=== PATIENT | female | born 1930 | race Caucasian/White ===

== ENCOUNTER 2020-03-23 13:36 | Inpatient (IN) | payer MEDICARE, OTHER ==
[~2020-03-23] VITALS: Ht 152.4 cm; Wt 63.5 kg
[2020-03-23] MEDS ORDERED: IV NS 1000 ML 1,000 ML IV ONE (14:00)
[2020-03-23] MEDS ORDERED: ACETAMINOPHEN 650 MG SUPP.RECT RC ONE (14:30)
[2020-03-23] MEDS ORDERED: ACETAMINOPHEN 325 MG SUPP ONE (14:32)
[2020-03-23 14:41] LABS: *BILIRUBIN,URIN NEGATIVE (NEGATIVE); *CLARITY,URINE CLOUDY (CLEAR); *COLOR,URINE DARK YELLOW (YELLOW); *KETONES,URINE NEGATIVE (NEGATIVE); *UROBILINOGEN,URINE 0.2 E.U./dl (NORMAL); LEUKOCYTE ESTERASE ,URINE NEGATIVE (NEGATIVE); NITRITE, URINE NEGATIVE (NEGATIVE); PH,URINE 5.5 (5.0-8.0); UGLUCOSE NEGATIVE (NEGATIVE)
[2020-03-23] MEDS ORDERED: VANCOMYCIN IV 200 ML ONE (14:43)
[2020-03-23] MEDS ORDERED: AZITHROMYCIN 500MG/ D5W 250ML IVPB **ER PYXIS ONLY IV ONE (14:43)
[2020-03-23 14:44] LABS: BASOPHILS % (AUTO) 0.5 % (0.0-2.0); HEMOGLOBIN 15.3 g/dL (10.9-14.3); LYMPHOCYTES # (AUTO) 0.8 K/uL (20.0-40.0); LYMPHOCYTES % (AUTO) 13.1 % (20.5-51.5); MEAN CORPUSCULAR HEMOGLOBIN 28.9 uug (24.7-32.8); MEAN CORPUSCULAR HGB CONC 33 g/dL (32.3-35.6); MEAN CORPUSCULAR VOLUME 89.1 fL (75.5-95.3); MONOCYTES # (AUTO) 0.5 K/uL (2.0-10.0); MONOCYTES % (AUTO) 7.3 % (0.0-11.0); NEUTROPHILS % (AUTO) 79.1 % (38.5-71.5); PLATELET COUNT (AUTO) 150 K/uL (179-408); RED BLOOD CELL COUNT(AUTO) 5.28 MIL/uL (3.63-4.92); WHITE BLOOD COUNT (AUTO) 6.4 K/uL (3.8-11.8)
[2020-03-23] MEDS ORDERED: VANCOMYCIN IV 1,000 MG in IV DEXTROSE 5% 250 ML IV ONE (14:45)
[2020-03-23] MEDS ORDERED: IV NORMAL SALINE 1000 ML BAG IV ONE (14:45)
[2020-03-23] MEDS ORDERED: PIPERACILLIN SODIUM/TAZOBACTAM 3.375 G in IV DEXTROSE 5% 50 ML IV ONE (14:45)
[2020-03-23] MEDS ORDERED: AZITHROMYCIN IV 500 MG in IV DEXTROSE 5% 250 ML IV ONE (14:45)
[2020-03-23 14:49] LABS: *BLOOD, URINE TRACE (NEGATIVE)
[2020-03-23 14:50] LABS: BACTERIA,URINE MANY /HPF (NONE SEEN); MAGNESIUM 2.2 mg/dL (1.8-2.4); MUCUS,URINE MANY /LPF (0-FEW); PHOSPHOROUS 3.9 mg/dL (2.5-4.9); SQUAMOUS EPITHELIAL CELL,UR FEW /HPF (NONE SEEN)
[2020-03-23 14:52] LABS: BILIRUBIN,DIRECT 0.3 mg/dL (0.0-0.2); BILIRUBIN,TOTAL 0.6 mg/dL (0.2-1.0); POTASSIUM 3.4 mmol/L (3.5-5.1); TOTAL PROTEIN, SERUM 7.7 g/dL (6.4-8.2)
--- NOTE | 2020-03-23 15:07 | NUR ---
PATIENT IN ROOM 1. SHE IS AWAKE AND ALERT IN NO DISTRESS. SHE HAS A FEVER. MEDICATION GIVEN ORDERED. FLU AND CRUZ VIRUS SWAB SENT TO LAB, URINE SENT TO LAB.
[2020-03-23 15:14] LABS: THYROID STIMULATING HORMONE 2.048 mIU/mL (0.358-3.740)
--- NOTE | 2020-03-23 15:37 | NUR ---
REPORT GIVEN TO ANTHONY FROM TELE FLOOR.
--- NOTE | 2020-03-23 15:50 | NUR ---
Received pt. from ER. Pt. is oriented to self, pt on room air saturating at 87%. Titrated oxygen up. Pt. is now on 5 L NC. O2 Saturation at 97%. Pt. has IV in L wrist 20 gauge intact patent. Vitals stable after NC. pt appears in no distress. pt. appears resting comfortably. pt. on droplet/ contact precautions for rule out covid. safety measures in place. bed in lowest position will continue to monitor pt.
[2020-03-23] MEDS ORDERED: ASPIRIN 300 MG RECTAL SUPP RC ONE (16:00)
[2020-03-23 16:56] VITALS: BP 116/50
[2020-03-23] MEDS ORDERED: ONDANSETRON 4 MG/2 ML VIAL IV PRN (17:00)
--- NOTE | 2020-03-23 17:07 | NUR ---
Clinical Pharmacy Note: Vancomycin Dosing per Pharmacy Subjective: Vancomycin IV to start on this 89 YO female patient for suspected infection from alf (r/o covid) Objective: BUN 33/Scr 1.0 WBC 6.4 Temperature 102.7 ht 152 cm wt 58 kg Assessment/Plan: Patient received vanco 1gm IVPB x1 today in ED. Will start vancomycin 1000mg IVPB Q36hr for a predicted vancomycin steady state trough level of 15 mcg/ml. 2nd dose on 03/25 at 0400. Will draw a vancomycin trough level prior to the 4th dose of vancomycin (not ordered yet). Will monitor renal function and adjust vancomycin dose, if needed, should renal function change significantly. Will follow daily.
[2020-03-23] MEDS: POTASSIUM CHLORIDE 20 MEQ in IV D5W 1000ML 1,000 ML IV PRN (17:52)
--- NOTE | 2020-03-23 18:47 | NUR ---
Pt. is disoriented, removing nasal canula. On room air O2 is not greater than 87%. Bilateral soft mitten restraints ordered. O2 is within range on 5 L. Pt. does not have a temperature. pt. resting comortably. all needs met. safety measures in place. will endorse to pm nurse
[2020-03-23 19:00] VITALS: BP 105/56
[2020-03-23] MEDS: PIPERACILLIN SODIUM/TAZOBACTAM 3.375 G in IV DEXTROSE 5% 50 ML IV SCH (21:15)
[2020-03-24] VITALS (25 sets, daily range): BP systolic 79–171; BP diastolic 39–96
[2020-03-24] MEDS: ACETAMINOPHEN 650 MG SUPP.RECT RC PRN ×3 (01:13→21:10)
--- NOTE | 2020-03-24 01:20 | NUR ---
patient is spiking a fewer of 102.4, shivering, rectal tylenol given. Humidifier was added to the O2 set-up.
[2020-03-24] MEDS: PIPERACILLIN SODIUM/TAZOBACTAM 3.375 G in IV DEXTROSE 5% 50 ML IV SCH ×3 (06:06→21:30)
[2020-03-24] MEDS: POTASSIUM CHLORIDE 20 MEQ in IV D5W 1000ML 1,000 ML IV PRN ×2 (06:08→20:41)
--- NOTE | 2020-03-24 07:25 | NUR ---
CONTACTED DR. HOPKINS FOR BP 82/45 ORDER RECEIVED FOR NS BOLUS, ALSO NOTIFIED HIM OF ELEVATED TROPONIN AND REQUEST FOR MIDLLINE. APPROVED.
[2020-03-24 07:48] LABS: BASOPHILS % (AUTO) 0.3 % (0.0-2.0); HEMOGLOBIN 13.3 g/dL (10.9-14.3); LYMPHOCYTES # (AUTO) 0.5 K/uL (20.0-40.0); LYMPHOCYTES % (AUTO) 9.1 % (20.5-51.5); MEAN CORPUSCULAR HEMOGLOBIN 29.1 uug (24.7-32.8); MEAN CORPUSCULAR HGB CONC 33 g/dL (32.3-35.6); MEAN CORPUSCULAR VOLUME 89.3 fL (75.5-95.3); MONOCYTES # (AUTO) 0.2 K/uL (2.0-10.0); MONOCYTES % (AUTO) 3.4 % (0.0-11.0); NEUTROPHILS # (AUTO) 5.2 K/uL (1.8-8.9); NEUTROPHILS % (AUTO) 87.2 % (38.5-71.5); PLATELET COUNT (AUTO) 112 K/uL (179-408); RED BLOOD CELL COUNT(AUTO) 4.59 MIL/uL (3.63-4.92); WHITE BLOOD COUNT (AUTO) 5.9 K/uL (3.8-11.8)
[2020-03-24 08:02] LABS: BILIRUBIN,TOTAL 0.8 mg/dL (0.2-1.0); MAGNESIUM 2.2 mg/dL (1.8-2.4); PHOSPHOROUS 1.9 mg/dL (2.5-4.9); POTASSIUM 3.6 mmol/L (3.5-5.1); TOTAL PROTEIN, SERUM 6.1 g/dL (6.4-8.2)
[2020-03-24] MEDS: PANTOPRAZOLE SODIUM 40 MG VIAL IV SCH (08:09)
[2020-03-24] MEDS ORDERED: ENOXAPARIN SODIUM 40 MG/0.4 ML DISP.SYRIN SQ SCH (08:15)
[2020-03-24 08:27] LABS: THYROID STIMULATING HORMONE 1.604 mIU/mL (0.358-3.740)
[2020-03-24] MEDS ORDERED: IV NORMAL SALINE 500 ML IV ONE (08:45)
[2020-03-24 09:01] LABS: AMYLASE 86 U/L (25-115); LIPASE 593 U/L (73-393)
[2020-03-24] MEDS ORDERED: BUMETANIDE 1 MG/4 ML VIAL IV ONE (11:00)
--- NOTE | 2020-03-24 11:13 | NUR ---
Clinical Pharmacy Note: Vancomycin Dosing per Pharmacy Subjective: Vancomycin IV to continue on this 89 YO female patient for suspected infection from [facility](no MD note yet, ER note:severe sepsis, PUI Covid) Objective: BUN 27/Scr 1.0 WBC 5.9 Temperature 102.4 ht 152 cm wt 58 kg 03/24:pending covid result Assessment/Plan: Will continue vancomycin 1000mg IVPB Q36hr for a predicted vancomycin steady state trough level of 15 mcg/ml. 2nd dose on 03/25 at 0400. Will draw a vancomycin trough level prior to the 4th dose of vancomycin (not ordered yet). Will monitor renal function and adjust vancomycin dose, if needed, should renal function change significantly. Will follow daily.
[2020-03-24] MEDS: ENOXAPARIN SODIUM 30 MG/0.3 ML DISP.SYRIN SUBCUT SCH (11:35)
[2020-03-24] MEDS ORDERED: NOREPINEPHRINE BITARTRATE 32 MG in IV NORMAL SALINE 218 ML IV PRN (12:45)
[2020-03-24] MEDS ORDERED: SODIUM PHOSPHATE MM 15 MMOL in IV NORMAL SALINE 250 ML IV ONE (13:00)
[2020-03-24] MEDS ORDERED: NOREPINEPHRINE BITARTRATE 8 MG in IV NORMAL SALINE 242 ML IV PRN (13:15)
[2020-03-24] MEDS: LORAZEPAM 2 MG/1 ML VIAL IV PRN (15:27)
[2020-03-24] MEDS ORDERED: LORAZEPAM 2 MG/1 ML VIAL IV ONE (15:59)
[2020-03-24] MEDS ORDERED: ADENOSINE 6 MG/2 ML SYR IV ONE (16:00)
[2020-03-24 16:35] LABS: ABG BASE EXCESS -4.9 mmol/L; ABG HCO3 17.4 mmol/L; ABG PCO2 26.1 mmHg (35.0-45.0); ABG PH 7.441 (7.350-7.450); ABG PO2 105.5 mmHg (75.0-100.0); ABG SITE RIGHT RADIAL; ABG TOTAL HEMOGLOBIN 14.9 G/dL (12.0-16.0); MetHb 0.3 % (0.0-1.5); O2Hb 97.1 % (94.0-97.0)
[2020-03-24] MEDS ORDERED: LORAZEPAM 2 MG/1 ML VIAL IV PRN (18:00)
[2020-03-24] MEDS ORDERED: DILTIAZEM HCL IV 125 MG in IV NORMAL SALINE 100 ML IV PRN (18:00)
[2020-03-24] MEDS: PHENYLEPHRINE IV 50 MG in IV NORMAL SALINE 245 ML IV PRN (18:47)
[2020-03-24] MEDS: DILTIAZEM HCL IV 125 MG in IV NORMAL SALINE 100 ML IV PRN (18:48)
--- NOTE | 2020-03-24 19:30 | NUR ---
REPORT RECEIVED DR ORDAZ CANCELLED ORDER FOR CT OF ABDOMEN AND PELVIS
--- NOTE | 2020-03-24 19:34 | NUR ---
Patient was transfered to CCU this afternoon, patient began shaking in what appeared to be a seizure, and heart rate was elevated along with BP. Contacted Dr. andre, performed EKG, and reported results, adenosine ordered which did not have a significant effect. Cardio requested and saw patient, Patient was also desaturating and mask and Nasal cannula were needed to keep patient's 02 saturation up, currently at 98%, abg also ordered. Currrently patient in bed resting comfortably, HR at 113, BP 133/73 on neosynephrine, and cardizem. IV fluids infulsing. roger draining.
--- NOTE | 2020-03-24 20:00 | NUR ---
RECEIVED AROUSABLE TO TOUCH , WITH NO SPONTANEOUS EYE OPENING , , ON SIMPLE MASK AT 10 L , CARDIZEM AT 3 MG , NEOSYNEPHRINE AT 0.5 MCG , DW + 20 MEQ KCL AT 90 ML , MID LINE LEFT ARM INTACT , 20 GA RAC INTACT , TEMPERATURE RECTALLY 105. 2, NO SEIZURE NOTED ,
--- NOTE | 2020-03-24 20:30 | NUR ---
COOL MEASURES BATH APPLIED , COOLING BLANKET PLACED ,
--- NOTE | 2020-03-24 21:00 | NUR ---
madalyn carter and maddy given an update on patient's condition
--- NOTE | 2020-03-24 23:26 | NUR ---
PATIENT IS DW + 20 MEQ KCL AT 90 ML . INTAKE AND OUPUT MONITORED ALONG WITH LABS LEVELS Addendum: 03/24/20 at 2325 by PRECIOUS CHILDRESS RN Amended: Sara kumar. Addendum: 03/24/20 at 2326 by PRECIOUS CHILDRESS RN Amended: Sara kumar. Addendum: 03/24/20 at 2327 by PRECIOUS CHILDRESS RN Amended: Links added. Addendum: 03/24/20 at 2332 by PRECIOUS CHILDRESS RN Amended: Links added.
--- NOTE | 2020-03-24 23:27 | NUR ---
PATIENT IS ON NEOSYNNEPRINE AT 5 MCG BEING TITRATED WHEN APPLICABLE Addendum: 03/24/20 at 2327 by PRECIOUS CHILDRESS RN Amended: Sara added. Addendum: 03/24/20 at 2327 by PRECIOUS CHILDRESS RN Amended: Sara added. Addendum: 03/24/20 at 2332 by PRECIOUS CHILDRESS RN Amended: Links added.
--- NOTE | 2020-03-24 23:28 | NUR ---
COOL BATH GIVEN AND MEDICATED FOR TEMPERATURE AND PATIENT IS PLACE ON ANTIBIOTICS Addendum: 03/24/20 at 2328 by PRECIOUS CHILDRESS RN Amended: Links added. Addendum: 03/24/20 at 2332 by PRECIOUS CHILDRESS RN Amended: Links added.
--- NOTE | 2020-03-24 23:31 | NUR ---
MENTAL STATUS AND BRETHING BEING MONITORED CURRENTLY ON SIMPLE MASK AT 10 ML Addendum: 03/24/20 at 2332 by PRCEIOUS CHILDRESS RN Amended: Links added.
--- NOTE | 2020-03-24 23:31 | NUR ---
MENTAL STATUS AND BRETHING BEING MONITORED CURRENTLY ON SIMPLE MASK AT 10 ML Addendum: 03/24/20 at 2332 by PRECIOUS CHILDRESS RN Amended: Links added.
[2020-03-24] MEDS: MORPHINE SULFATE 2 MG/1 ML DISP.SYRIN IV PRN (23:59)
[2020-03-25] VITALS (88 sets, daily range): BP systolic 71–165; BP diastolic 28–115
--- NOTE | 2020-03-25 02:00 | NUR ---
VS STABLE , SLEEPING COMFORTABLY , NO FEVER NEOSYNEPHRINE 0.5 MCG , CARDIZEM CURRENTLY AT 10 MG , HR 95 , OXYGEN AT SIMPLE MASK 10 L , NO SEIZURE NOTED
[2020-03-25] MEDS ORDERED: VANCOMYCIN IV 1,000 MG in IV DEXTROSE 5% 250 ML IV SCH (04:00)
--- NOTE | 2020-03-25 04:00 | NUR ---
no fever , slightly restless, , no seizure , neosynephrine increase to 1 mcg , cardizem decreased to 5 mg , , dw5w + 20 meq kcl at 90 ml , no bowel movement , mid line intact and r ac iv intact with slight bruising , cxr done
[2020-03-25] MEDS: MORPHINE SULFATE 2 MG/1 ML DISP.SYRIN IV PRN (04:16)
--- NOTE | 2020-03-25 05:08 | NUR ---
lab draw tried by primary nurse and setter off , several times failed will try with the next shift
[2020-03-25] MEDS: PIPERACILLIN SODIUM/TAZOBACTAM 3.375 G in IV DEXTROSE 5% 50 ML IV SCH ×3 (05:22→21:56)
--- NOTE | 2020-03-25 06:00 | NUR ---
arousable by name and touch , with spontaneous eye opening , cardizem at 5 mg , neosynephrine at 1.5 mcg , no fever , no seizure noted , mid line , peripheral line and roger intact , hr is 79 , afib , sbp 131/85 , saturating at 92% simple mask at 10 l
--- NOTE | 2020-03-25 06:28 | NUR ---
ekg and abg done
[2020-03-25 06:58] LABS: ABG BASE EXCESS -3.5 mmol/L; ABG HCO3 19.1 mmol/L; ABG PCO2 28.3 mmHg (35.0-45.0); ABG PH 7.446 (7.350-7.450); ABG SITE RIGHT RADIAL; ABG TOTAL HEMOGLOBIN 14.7 G/dL (12.0-16.0); COHb 0.9 % (0.5-1.5); MetHb 0.3 % (0.0-1.5); O2Hb 89.2 % (94.0-97.0)
--- NOTE | 2020-03-25 07:30 | NUR ---
DOCTOR CARINE IN THE UNIT TO SEE THE PATIENT. INCREASED O2 TO NON-REBREATHER. ABG IS POOR AND IS AWARE. PLEASE REFER TO ORDER HISTORY FOR NEW LABS
--- NOTE | 2020-03-25 08:00 | NUR ---
PATIENT A FEBRILE AT THIS TIME. REPORTED SPIKE IN TEMPERATURE LAST NIGHT
[2020-03-25 08:34] LABS: BASOPHILS % (AUTO) 0.4 % (0.0-2.0); HEMATOCRIT 43.1 % (31.2-41.9); HEMOGLOBIN 13.9 g/dL (10.9-14.3); LYMPHOCYTES % (AUTO) 8.4 % (20.5-51.5); MEAN CORPUSCULAR HEMOGLOBIN 28.8 uug (24.7-32.8); MEAN CORPUSCULAR HGB CONC 32 g/dL (32.3-35.6); MEAN CORPUSCULAR VOLUME 89.1 fL (75.5-95.3); MONOCYTES # (AUTO) 0.2 K/uL (2.0-10.0); MONOCYTES % (AUTO) 2.1 % (0.0-11.0); NEUTROPHILS # (AUTO) 10.1 K/uL (1.8-8.9); NEUTROPHILS % (AUTO) 89.1 % (38.5-71.5); PLATELET COUNT (AUTO) 153 K/uL (179-408); RED BLOOD CELL COUNT(AUTO) 4.84 MIL/uL (3.63-4.92); WHITE BLOOD COUNT (AUTO) 11.4 K/uL (3.8-11.8)
[2020-03-25] MEDS: PANTOPRAZOLE SODIUM 40 MG VIAL IV SCH (08:43)
[2020-03-25 08:50] LABS: BILIRUBIN,TOTAL 0.7 mg/dL (0.2-1.0); CREATININE 1.3 mg/dL (0.6-1.3); MAGNESIUM 1.7 mg/dL (1.8-2.4); PHOSPHOROUS 2.6 mg/dL (2.5-4.9); POTASSIUM 3.6 mmol/L (3.5-5.1); TOTAL PROTEIN, SERUM 6.1 g/dL (6.4-8.2)
[2020-03-25] MEDS: ENOXAPARIN SODIUM 30 MG/0.3 ML DISP.SYRIN SUBCUT SCH (08:52)
--- NOTE | 2020-03-25 10:23 | NUR ---
Clinical Pharmacy Note: Vancomycin Dosing per Pharmacy Subjective: Vancomycin IV to continue on this 89 YO female patient for suspected infection from [facility](no MD note yet, ER note:severe sepsis, PUI Covid) Objective: BUN 27/Scr 1.0 (03/24) WBC 5.9 (03/24) Temperature 98.7 ht 152 cm wt 58 kg 03/25:pending covid result Assessment/Plan: Will continue vancomycin 1000mg IVPB Q36hr for a predicted vancomycin steady state trough level of 15 mcg/ml. 2nd dose was today at 0400. Will draw a vancomycin trough level prior to the 4th dose of vancomycin (not ordered yet). Will monitor renal function and adjust vancomycin dose, if needed, should renal function change significantly. Will follow daily.
[2020-03-25] MEDS: PHENYLEPHRINE IV 50 MG in IV NORMAL SALINE 245 ML IV PRN ×2 (10:28→18:57)
[2020-03-25] MEDS ORDERED: MAGNESIUM SULFATE/D5W 100 ML IV SCH (12:15)
[2020-03-25] MEDS ORDERED: POTASSIUM CHLORIDE 50 ML IV SCH (12:15)
[2020-03-25] MEDS: DILTIAZEM HCL IV 125 MG in IV NORMAL SALINE 100 ML IV PRN ×3 (12:57→23:54)
--- NOTE | 2020-03-25 16:50 | NUR ---
DR HARDY IN THE UNIT TO SEE PATIENT
--- NOTE | 2020-03-25 17:00 | NUR ---
PATIENT SPIKED FEVER OF 103.1. HEART HAS BEEN IN AFIB UNCONTROLLED AND INCREASING INTO 130'S. PATIENT GIVEN TYLENOL.
[2020-03-25] MEDS: ACETAMINOPHEN 650 MG SUPP.RECT RC PRN (17:03)
[2020-03-25] MEDS: POTASSIUM CHLORIDE 20 MEQ in IV D5W 1000ML 1,000 ML IV PRN (17:13)
--- NOTE | 2020-03-25 19:45 | NUR ---
Received pt HOB elevated, awake and restless at this time. Pt confused, reorientation provided. Droplet precautions, pending COVID results. DNR/DNI status. Pt on nonrebreather mask 15L/min up to 86%. No severe acute distress noted. AFIB on monitor. Cardizem drip running at 15 mg/hr. Neosynephrine at 1.3 mch/kg/min. IV maintenance fluid running. VSS, afebrile. F/C in place. Pt turned and repositioned. HOB elevated maintained. Safety precautions observed. NPO diet. Continue plan of care.
--- NOTE | 2020-03-25 21:00 | NUR ---
Paged promotions team leader side panel padder, DR HAWK, for sustained O2 sats up to 84%. Pt is on nonrebreather 15L/min with 4L NC for support. made aware and notified. No new orders at this time. Will continue to monitor pt.
[2020-03-25] MEDS: LORAZEPAM 2 MG/1 ML VIAL IV PRN (22:55)
--- NOTE | 2020-03-25 23:30 | NUR ---
Phone call made to [employer] [facility] regarding pt current condition. Report given. O2 sats ranging between 80-84% on nonrebreather mask. Due to pt's condition, [employer] recommends no high flow or BIPAP. New orders received. Continue plan of care.
[2020-03-26] VITALS (46 sets, daily range): BP systolic 107–174; BP diastolic 52–134
[2020-03-26] MEDS ORDERED: FUROSEMIDE 20 MG/2 ML VIAL IV ONE
[2020-03-26] MEDS: MORPHINE SULFATE 2 MG/1 ML DISP.SYRIN IV PRN (02:02)
[2020-03-26 05:59] LABS: MEAN CORPUSCULAR VOLUME 87.4 fL (75.5-95.3)
[2020-03-26] MEDS: PIPERACILLIN SODIUM/TAZOBACTAM 3.375 G in IV DEXTROSE 5% 50 ML IV SCH ×2 (05:59→14:06)
[2020-03-26 06:01] LABS: CREATININE 1.1 mg/dL (0.6-1.3); PHOSPHOROUS 1.8 mg/dL (2.5-4.9); POTASSIUM 3.1 mmol/L (3.5-5.1)
[2020-03-26 06:03] LABS: BASOPHILS % (AUTO) 0.2 % (0.0-2.0); HEMATOCRIT 49.8 % (31.2-41.9); HEMOGLOBIN 16.3 g/dL (10.9-14.3); LYMPHOCYTES # (AUTO) 0.5 K/uL (20.0-40.0); LYMPHOCYTES % (AUTO) 3.5 % (20.5-51.5); MEAN CORPUSCULAR HEMOGLOBIN 28.7 uug (24.7-32.8); MEAN CORPUSCULAR HGB CONC 33 g/dL (32.3-35.6); MONOCYTES # (AUTO) 0.2 K/uL (2.0-10.0); MONOCYTES % (AUTO) 1.6 % (0.0-11.0); NEUTROPHILS # (AUTO) 14.4 K/uL (1.8-8.9); NEUTROPHILS % (AUTO) 94.7 % (38.5-71.5); PLATELET COUNT (AUTO) 145 K/uL (179-408); RED BLOOD CELL COUNT(AUTO) 5.69 MIL/uL (3.63-4.92); WHITE BLOOD COUNT (AUTO) 15.2 K/uL (3.8-11.8)
[2020-03-26 06:45] LABS: ABG BASE EXCESS -3.4 mmol/L; ABG HCO3 19.1 mmol/L; ABG PCO2 28.7 mmHg (35.0-45.0); ABG PO2 42.8 mmHg (75.0-100.0); ABG SITE LEFT RADIAL; ABG TOTAL HEMOGLOBIN 16.9 G/dL (12.0-16.0); COHb 1.2 % (0.5-1.5); MetHb 0.3 % (0.0-1.5); O2Hb 81.6 % (94.0-97.0)
--- NOTE | 2020-03-26 07:30 | NUR ---
RT PER MD VERBAL ORDER MD WILL PLACE ORDER. PT WAS PLACE ON HFNC 50 LPM 100%. PT ALSO WAS PLACE ON 15LPM NRB. PT AT THIS TIME SPO2 < 85% WILL CONTINUE TO MONITOR PT SPO2. MD AWARE. NO RE-PEAT ABG WAS ORDER. PT SPO2 PROBE WAS CHANGED AND PLACE ON DIFFERENT FINGER. WILL CONTINUE TO MONITOR PT.
--- NOTE | 2020-03-26 07:30 | NUR ---
RT PER MD HFNC ORDER 40 LPM 100% PT DID NOT TOLERATED 40LPM WELL PT WAS PLACE ON 50LPM AT THIS TIME. PER MD ADJUST LPM FOR PT O2 NEEDS.
[2020-03-26 08:04] LABS: BAND % (MANUAL) 9 % (0-10); LYMPHOCYTES % (MANUAL) 4 % (20-40)
[2020-03-26 08:07] LABS: NEUTROPHILS % (MANUAL) 86 % (42-75)
[2020-03-26 08:08] LABS: MONOCYTES % (MANUAL) 1 % (2-10)
[2020-03-26] MEDS: PANTOPRAZOLE SODIUM 40 MG VIAL IV SCH (08:57)
[2020-03-26] MEDS: POTASSIUM CHLORIDE 50 ML IV SCH ×4 (08:57→12:10)
[2020-03-26] MEDS: ENOXAPARIN SODIUM 30 MG/0.3 ML DISP.SYRIN SUBCUT SCH (08:58)
[2020-03-26] MEDS: POTASSIUM CHLORIDE 20 MEQ in IV D5W 1000ML 1,000 ML IV PRN (10:05)
--- NOTE | 2020-03-26 10:50 | NUR ---
Dr. Alvarez here to see pt. Full report given. New orders received.
[2020-03-26] MEDS ORDERED: ASPIRIN 81 MG TAB.CHEW PO SCH (11:15)
[2020-03-26] MEDS ORDERED: FUROSEMIDE 40 MG/4 ML VIAL IV SCH (11:15)
--- NOTE | 2020-03-26 11:27 | NUR ---
Pt unable to take PO at this time. Pt disoriented, lethargic. Pt on HF vapotherm 50L and NC10L.
[2020-03-26] MEDS ORDERED: AMIODARONE HCL IV 450 MG in IV DEXTROSE 5% 250 ML IV PRN (12:00)
[2020-03-26] MEDS ORDERED: AMIODARONE HCL IV 150 MG in IV DEXTROSE 5% 100 ML IV ONE (12:00)
--- NOTE | 2020-03-26 13:26 | NUR ---
Clinical Pharmacy Note: Vancomycin Dosing per Pharmacy Subjective: Vancomycin IV to continue on this 89 YO female patient for suspected infection from snf(no MD note yet, ER note:severe sepsis, PUI Covid) Objective: BUN 15/1.1 WBC 15.2 Temperature 97.5 ht 152 cm wt 58 kg 03/26: Covid + Assessment/Plan: Will continue vancomycin 1000mg IVPB Q36hr for a predicted vancomycin steady state trough level of 15 mcg/ml. 3rd dose today at 1600. Will draw a vancomycin trough level prior to the 4th dose of vancomycin (not ordered yet). Will monitor renal function and adjust vancomycin dose, if needed, should renal function change significantly. Will follow daily.
--- NOTE | 2020-03-26 13:32 | NUR ---
WOUND CARE CONSULT: REVIEWED NURSING DOCUMENTATION AND CHART. PER NURSING STAFF, PT HAS BLANCHABLE REDNESS TO SACRUM. PT ON FIRST STEP CIRRUS LOW AIRLOSS MATTRESS. ALL SKIN PROTECTION RECOMMENDATIONS DISCUSSED WITH NURSING STAFF. WILL SEE PRYehuda BOWIE IN AGREEMENT WITH PLAN OF CARE.
--- NOTE | 2020-03-26 14:45 | NUR ---
Dr. Reeves here to see pt. Full report given. New orders received. Per MD, pt to be on morphine drip comfort care after speaking with daughter.
--- NOTE | 2020-03-26 16:40 | NUR ---
Daughter here to see pt per approval of Dependency Case Manager, Director, and Infectious Disease Control. Daughter educated and instructed regarding PPE fitting and high risk for COVID. Daughter verbalized understanding.
[2020-03-26] MEDS: MORPHINE SULFATE PF IV DRIP 100 MG in IV DEXTROSE 5% 96 ML IV PRN (18:36)
--- NOTE | 2020-03-26 19:30 | NUR ---
increase morphine drip and follow morphine drip protocol patient is on 2 mg/hr noted when turned and reposition patient moaning and with facial grimaces and breathing RR is fast , increase morphine to 4 mg /hr .
--- NOTE | 2020-03-26 19:40 | NUR ---
called [facility] and information given patient + for covid and age >88 not a candidate for organ donation no :[id number].
--- NOTE | 2020-03-26 19:45 | NUR ---
patient on high flow o2 (Vapotherm ) at 50 liters and on non breather mask at 10 liters .saturation 79% rr 25 to 28 .
--- NOTE | 2020-03-26 20:00 | NUR ---
TEMP 101.2 RECTALLY ,applied ice packs/cooled packs to bilateral armpit and cooling blanket on and placed on auto mode .turned and reposition oral care done ,hob up ,patient open eyes but doesn't follow commands,but withdraws to painful stimuli .
--- NOTE | 2020-03-26 20:19 | NUR ---
spoked with patient daughters Nichole and Nelda aware patient now on morphine drip for comfort measures patient is DNR and DNI .FAMILY already made facility /mortuary arrangement to [facility] director and embalmer [address] [place] [address] tel #[phone]
[2020-03-26] MEDS ORDERED: ATORVASTATIN 10 MG TABLET PO SCH (21:00)
--- NOTE | 2020-03-26 21:41 | NUR ---
TEMP 99.0 RECTALLY .patient noted on be moaning on and off and talking to self . increase morphine drip as per comfort measures protocol .
[2020-03-27] VITALS (18 sets, daily range): BP systolic 0–158; BP diastolic 0–72
--- NOTE | 2020-03-27 | NUR ---
turned and reposition patient ,offloaded back with pillows and heels off bed .
--- NOTE | 2020-03-27 04:00 | NUR ---
am care done ,changed soiled linens and gown . skin care done . continue comfort measures and continue with morphine drip .
[2020-03-27] MEDS: MORPHINE SULFATE PF IV DRIP 100 MG in IV DEXTROSE 5% 96 ML IV PRN ×3 (05:16→16:47)
--- NOTE | 2020-03-27 06:48 | NUR ---
spoked with patients daughter dictated patient v/s and aware about the patient morphine drip at 20 mg/hr . Maximum rate patient appears to be comfortable no s/s of pain . will continue to monitor v/s and levels 0f comfort .
--- NOTE | 2020-03-27 08:17 | NUR ---
Dr. Rinaldi here to see pt. Full report given. No new orders received.
--- NOTE | 2020-03-27 10:40 | NUR ---
Nichole (daughter) came to see pt. Daughter aware of covid risks/consequences and verbalized understanding.
--- NOTE | 2020-03-27 16:03 | NUR ---
Patient on comfort care. Will remain available as needed. Addendum: 03/27/20 at [address] Amended: Links added.
--- NOTE | 2020-03-27 16:50 | NUR ---
Spoke with Dr. Reeves on the telephone. stated okay to increase morphine drip max rate to 40 mg/hr. Titrate per protocol.
[2020-03-27] MEDS ORDERED: MORPHINE SULFATE PF IV DRIP 100 MG in IV DEXTROSE 5% 96 ML IV PRN (17:15)
--- NOTE | 2020-03-27 18:45 | NUR ---
Pt noted to be in asystole. Pt apneic, unresponsive. Unable to obtain VS readings.
--- NOTE | 2020-03-27 18:50 | NUR ---
Pt pronounced by RACHID Jerez. Pt apneic for 5 minutes. Pupils fixed and dilated. No audible heart tones, breath sounds for 1 minute. No palpable pulses for 1 minute. No corneal reflexes. MD, Telephone Maintainer, and daughter made aware. Addendum: 03/27/20 at 1928 by CAROLIN BRICEÑO RN [facility] notified of time of . .
--- NOTE | 2020-03-27 18:50 | NUR ---
Pronouncement of : Patient Apneic for 5 minutes Pupils fixed and dilated No audible heart tones, breath sounds for 1 minute No palpable pulses for 1 minute No corneal reflexes Patient pronounced at 1850 Physician notified.
--- NOTE | 2020-03-27 19:30 | NUR ---
Spoke to Ger at [facility]. Will call back for ETA for hand picker.
--- NOTE | 2020-03-27 19:35 | NUR ---
[facility] transport for above [employer] called. gas line installer supervisor will be tomorrow.
--- NOTE | 2020-03-27 20:00 | NUR ---
Decedent care done. Tags attached
--- NOTE | 2020-03-27 21:30 | NUR ---
Body to the morgue.
== END 2020-03-27 21:46 | disposition expired | DRG 871 ==
LOC: ER 13:37 → TELE3 15:45 → CCU 03-24 15:16
PROVIDERS: ADMIT Internal Medicine
DX: A41.89 Other specified sepsis (principal); G92 Toxic encephalopathy; K85.90 Acute pancreatitis without necrosis or infection, unspecified; N17.0 Acute kidney failure with tubular necrosis; U07.1 COVID-19; J12.89 Other viral pneumonia; J96.01 Acute respiratory failure with hypoxia; I50.33 Acute on chronic diastolic (congestive) heart failure; D68.69 Other thrombophilia; E87.0 Hyperosmolality and hypernatremia; E87.2 Acidosis; I48.92 Unspecified atrial flutter; I47.1 Supraventricular tachycardia; Z66 Do not resuscitate; E87.6 Hypokalemia; E11.9 Type 2 diabetes mellitus without complications; D69.6 Thrombocytopenia, unspecified; F32.9 Major depressive disorder, single episode, unspecified; M19.90 Unspecified osteoarthritis, unspecified site; Z51.5 Encounter for palliative care; Z87.440 Personal history of urinary (tract) infections; Z87.442 Personal history of urinary calculi; I48.0 Paroxysmal atrial fibrillation; F01.50 Vascular dementia, unspecified severity, without behavioral disturbance, psychotic disturbance, mood disturbance, and anxiety; Z86.73 Personal history of transient ischemic attack (TIA), and cerebral infarction without residual deficits; Z86.74 Personal history of sudden cardiac arrest
CPT/HCPCS: 36415; 36600; 51702; 70030-TC; 70450; 71045; 83605; 83615; 83690; 83735; 84100; 84443; 85025; 85730; 87040; 87086; 87400; 93005; 93307; A4217; A4663; C1758; C9113; G0378; J0153; J0282; J0456; J1650; J1940; J2060; J2270; J2274; J2370; J2543; J3370; J3475; J3480; J3490; J7030; J7040; J7050; J7060; J7070